=== PATIENT | female | born 1985 | race Caucasian/White ===

== ENCOUNTER 2020-06-08 21:12 | Inpatient (IN) | payer OTHER ==
[~2020-06-08] VITALS: Ht 167.6 cm; Wt 105.0 kg
--- NOTE | 2020-06-08 21:30 | NUR ---
PT PADDED SIDE RAILS, BED IN LOWEST LOCKED POSITION, FAMILY AT BEDSIDE, CALL LIGHT WITHIN REACH, PT PLACED CLOSE TO NURSES STATION FOR OBSERVATION.
--- NOTE | 2020-06-08 22:36 | NUR ---
PATIENT RESTING IN BED, EVEN-UNLABORED RESPIRATIONS NOTED. VSS. WILL CONTINUE TO MONITOR.
[2020-06-08 23:16] VITALS: BP 125/85
[2020-06-09 00:08] LABS: ALANINE AMINOTRANSFERASE 29 U/L (12-78); ALBUMIN 3.3 g/dL (3.4-5.0); ANION GAP 7 mmol/L (5-15); CALCIUM 8.7 mg/dL (8.5-10.1); CHLORIDE 108 mmol/L (98-107)
[2020-06-09 00:11] LABS: ALKALINE PHOSPHATASE 87 U/L (45-117); BILIRUBIN,TOTAL 0.2 mg/dL (0.2-1.0); TOTAL PROTEIN 7.3 g/dL (6.4-8.2)
[2020-06-09 00:12] LABS: BASOPHILS % (AUTO) 1 % (0-1); EOSINOPHILS % (AUTO) 0 % (1-7); LYMPHOCYTES % (AUTO) 15 % (22-44); MEAN CORPUSCULAR HGB CONC 34.1 g/dL (32.4-35.8); MEAN PLATELET VOLUME 7.3 fL (7.4-10.4); MONOCYTES % (AUTO) 4 % (2-9); NEUTROPHILS % (AUTO) 81 % (42-75); PLATELET COUNT 348 x10^3/uL (130-400); RED BLOOD COUNT 4.36 x10^6/uL (3.82-5.3); RED CELL DISTRIBUTION WIDTH 13.5 % (9.6-15.2)
[2020-06-09] MEDS ORDERED: hydrALAzine 20 MG/ML, 1ML IVPush PRN (00:30)
[2020-06-09] MEDS ORDERED: ONDANSETRON 2MG/ML, 2ML IVPush PRN (00:30)
[2020-06-09] MEDS ORDERED: LORazepam 2 MG/ML, 1ML IV PRN (00:30)
[2020-06-09 00:37] LABS: MD NO
[2020-06-09 01:33] VITALS: BP 122/77
[2020-06-09 05:32] LABS: BASOPHILS % (AUTO) 0 % (0-1); CHLORIDE 108 mmol/L (98-107); EOSINOPHILS % (AUTO) 0 % (1-7); LYMPHOCYTES % (AUTO) 25 % (22-44); MEAN CORPUSCULAR HGB CONC 34.2 g/dL (32.4-35.8); MEAN PLATELET VOLUME 7.5 fL (7.4-10.4); MONOCYTES % (AUTO) 5 % (2-9); NEUTROPHILS % (AUTO) 69 % (42-75); PLATELET COUNT 360 x10^3/uL (130-400); RED BLOOD COUNT 4.53 x10^6/uL (3.82-5.3); RED CELL DISTRIBUTION WIDTH 13.4 % (9.6-15.2)
[2020-06-09 05:37] LABS: MD NO
[2020-06-09 05:42] LABS: ALANINE AMINOTRANSFERASE 30 U/L (12-78); ALBUMIN 3.3 g/dL (3.4-5.0); ALKALINE PHOSPHATASE 89 U/L (45-117); ANION GAP 7 mmol/L (5-15); BILIRUBIN,TOTAL 0.4 mg/dL (0.2-1.0); CALCIUM 8.7 mg/dL (8.5-10.1); CREATININE 0.66 mg/dL (0.55-1.02); TOTAL PROTEIN 7.4 g/dL (6.4-8.2)
[2020-06-09 06:33] LABS: AMPHETAMINE SCREEN, URINE Negative (Negative); BARBITURATE SCREEN, URINE Negative (Negative); BENZODIAZEPINE SCREEN, URINE Negative (Negative); CANNABINOID SCREEN, URINE Negative (Negative); COCAINE SCREEN, URINE Negative (Negative); METHADONE SCREEN, URINE Negative (Negative); OPIATE SCREEN, URINE Negative (Negative)
[2020-06-09 08:48] VITALS: BP 124/83
[2020-06-09] MEDS: ACETAMINOPHEN 325 MG TABLET PO PRN (08:49)
[2020-06-09] MEDS ORDERED: GADOTERATE 10 MMOL/20ML SYR ONE (09:22)
[2020-06-09] MEDS ORDERED: NORE-205 PO (10:05)
[2020-06-09 12:53] LABS: T4 (THYROXINE) 14.1 mcg/dL (4.8-13.9)
[2020-06-09] MEDS: ZONISAMIDE 50 MG CAPSULE PO SCH (13:14)
[2020-06-09 13:46] VITALS: BP 131/84
[2020-06-09 19:29] VITALS: BP 108/70
[2020-06-09] MEDS ORDERED: NORETHINDRONE E ESTRADIOL IRON PO SCH (21:00)
[2020-06-10 01:09] VITALS: BP 125/73
[2020-06-10] MEDS: ZONISAMIDE 50 MG CAPSULE PO SCH (08:26)
[2020-06-10 08:40] VITALS: BP 123/83
[2020-06-10 15:40] VITALS: BP 114/77
[2020-06-10] MEDS: ASPIRIN 325 MG TABLET PO SCH (16:30)
[2020-06-10] MEDS: ACETAMINOPHEN 325 MG TABLET PO PRN (17:18)
[2020-06-10 19:55] VITALS: BP 113/64
[2020-06-11 01:41] VITALS: BP 110/72
[2020-06-11] MEDS: ASPIRIN 325 MG TABLET PO SCH (08:48)
[2020-06-11] MEDS: ACETAMINOPHEN 325 MG TABLET PO PRN (08:48)
[2020-06-11] MEDS: ZONISAMIDE 50 MG CAPSULE PO SCH (09:17)
[2020-06-11 09:50] VITALS: BP 113/72
[2020-06-11] MEDS ORDERED: CLOP75TA52 PO (14:20)
[2020-06-11] MEDS ORDERED: ASPI-963 PO (14:20)
[2020-06-11] MEDS ORDERED: ZONI50CA10 PO (14:20)
[2020-06-11 15:32] LABS: ANA SCREEN POSITIVE (Negative); ANTI-NUCLEAR ANTIBODY PATTERN HOMOGENOUS
== END 2020-06-11 16:32 | disposition home or self-care (01) | DRG 65 ==
LOC: ED 22:40 → EDIP 22:58 → UNDOADMIN 22:58 → 5SO 23:15 → EDIP 23:15 → 5SO 06-09 00:19 → DCLOUNGE 06-11 16:22
PROVIDERS: ADMIT Internal Medicine; ATTEND Internal Medicine
DX: I63.40 Cerebral infarction due to embolism of unspecified cerebral artery (principal); D68.59 Other primary thrombophilia; G40.409 Other generalized epilepsy and epileptic syndromes, not intractable, without status epilepticus; E66.9 Obesity, unspecified; G43.109 Migraine with aura, not intractable, without status migrainosus; Z79.82 Long term (current) use of aspirin; Z88.0 Allergy status to penicillin; I77.6 Arteritis, unspecified; R32 Unspecified urinary incontinence; G44.209 Tension-type headache, unspecified, not intractable; F41.0 Panic disorder [episodic paroxysmal anxiety]; H54.7 Unspecified visual loss; Z86.61 Personal history of infections of the central nervous system; Z87.74 Personal history of (corrected) congenital malformations of heart and circulatory system; Z68.37 Body mass index [BMI] 37.0-37.9, adult
CPT/HCPCS: 36415; 70553; 71045; 76536; 80053; 80307; 81240; 83036; 83520; 84436; 84443; 84481; 84703; 85025; 85300; 85301; 85302; 85303; 85305; 85306; 85379; 85598; 85610; 85613; 85651; 85670; 85730; 85732; 86038; 86039; 86140; 86146; 86147; 86148; 93306; 93356; 93880; 93970; 95819; G0378; A9575

== ENCOUNTER 2020-07-13 10:18 | Emergency (ER) | payer OTHER ==
[~2020-07-13] VITALS: Ht 162.6 cm; Wt 102.1 kg
[~2020-07-13 10:18] MED LIST: ASPI-963 PO; CLOP75TA52 PO; NORE-205 PO; ZONI50CA10 PO
--- NOTE | 2020-07-13 10:43 | NUR ---
PT CAME IN CO BILAT LEG SORENESS AND PAIN IN HER CALFS. RECENTLY WENT ON A CAR TRIP TO THE BAY. TAKES CLOPIDOGREL HAS HX OF RECENT CVA. PT ATTACHED TO MONITORS. POSITIONED TO COMFORT. VSS. NADN. CMS INTACT AND +2 PEDAL PULSES IN BLE. NO SWELLIG OR REDNESS OBSERVED IN BLE.
--- NOTE | 2020-07-13 11:08 | NUR ---
DR. DEMPSEY EVALUATED PT AT BEDSIDE. AWAITING US. YU.
--- NOTE | 2020-07-13 11:32 | NUR ---
us at bedside. vss. [place]itting[place].
[2020-07-13 11:48] LABS: ANION GAP 10 mmol/L (5-15); CALCIUM 9.2 mg/dL (8.5-10.1); CHLORIDE 107 mmol/L (98-107)
[2020-07-13 11:52] LABS: CREATINE KINASE, TOTAL 49 U/L (26-192); CREATININE 0.68 mg/dL (0.55-1.02)
[2020-07-13 13:10] VITALS: BP 134/77
== END 2020-07-13 13:11 | disposition home or self-care (01) ==
LOC: ED 12:18
DX: M79.661 Pain in right lower leg (principal); M79.662 Pain in left lower leg; Z86.718 Personal history of other venous thrombosis and embolism; Z87.891 Personal history of nicotine dependence
CPT/HCPCS: 36415; 80048; 82550; 93970; 99284

== ENCOUNTER 2020-09-01 06:52 | Day surgery (SDC) | payer OTHER ==
[~2020-09-01] VITALS: Ht 162.6 cm; Wt 105.0 kg
[2020-09-01 07:17] VITALS: BP 117/89
[2020-09-01] MEDS ORDERED: ESLI800T PO (07:28)
[2020-09-01] MEDS ORDERED: SODIUM CHLORIDE 0.9% 1,000 ML IV ONE (07:30)
[2020-09-01] MEDS ORDERED: PLEASE ENTER HEIGHT AND WEIGHT MC SCH (08:00)
[2020-09-01 08:09] LABS: BASOPHILS % (AUTO) 0 % (0-1); EOSINOPHILS % (AUTO) 3 % (1-7); LYMPHOCYTES % (AUTO) 30 % (22-44); MEAN CORPUSCULAR HEMOGLOBIN 29.3 pg (27.0-34.8); MEAN CORPUSCULAR HGB CONC 33.9 g/dL (32.4-35.8); MEAN PLATELET VOLUME 7.1 fL (7.4-10.4); MONOCYTES % (AUTO) 8 % (2-9); NEUTROPHILS % (AUTO) 60 % (42-75); PLATELET COUNT 370 x10^3/uL (130-400); RED BLOOD COUNT 4.84 x10^6/uL (3.82-5.3); RED CELL DISTRIBUTION WIDTH 13.7 % (9.6-15.2)
[2020-09-01 08:13] LABS: ANION GAP 9 mmol/L (5-15); CHLORIDE 109 mmol/L (98-107)
[2020-09-01 08:18] LABS: CREATININE 0.75 mg/dL (0.55-1.02)
[2020-09-01] MEDS ORDERED: LIDOCAINE 1%, 20ML ONE (10:17)
[2020-09-01] MEDS ORDERED: MIDAZOLAM 1 MG/ML, 2ML ONE (10:24)
[2020-09-01] MEDS ORDERED: FENTANYL PF 250 MCG/5ML ONE (10:24)
[2020-09-01] MEDS ORDERED: DEXAMETHASONE 4 MG/ML, 1ML ONE ×2 (10:25→10:26)
[2020-09-01] MEDS ORDERED: CEFAZOLIN 1,000 MG ONE ×2 (10:25)
[2020-09-01] MEDS ORDERED: HEPARIN 1,000 UNITS/ML, 10ML ONE ×2 (10:25→10:26)
[2020-09-01] MEDS ORDERED: PROPOFOL 10 MG/ML, 20ML ONE (10:32)
[2020-09-01] MEDS ORDERED: ROCURONIUM 10 MG/ML,10ML ONE (10:32)
[2020-09-01] MEDS ORDERED: GLYCOPYRROLATE 0.2MG/1ML, 5ML ONE (11:22)
[2020-09-01] MEDS ORDERED: NEOSTIGMINE 1 MG/ML, 10ML ONE (11:22)
[2020-09-01] MEDS ORDERED: MIDAZOLAM 1 MG/ML, 5ML ONE (11:39)
[2020-09-01] MEDS ORDERED: ACETAMINOPHEN 650 MG SUPP PR PRN (12:00)
[2020-09-01] MEDS ORDERED: HYDROcodone/APAP 5/325 TABLET PO PRN (12:00)
[2020-09-01] MEDS ORDERED: SODIUM CHLORIDE 0.9% 1,000 ML IV SCH (12:00)
[2020-09-01] MEDS ORDERED: hydrALAzine 20 MG/ML, 1ML IVPush PRN (12:00)
[2020-09-01] MEDS ORDERED: ONDANSETRON 2MG/ML, 2ML IVPush PRN (12:00)
[2020-09-01] MEDS ORDERED: LABETALOL 20 MG/4 ML IVPush PRN (12:00)
[2020-09-01] MEDS ORDERED: ACETAMINOPHEN 650 MG/20.3 ML UDC PO PRN (12:00)
[2020-09-01 13:24] VITALS: BP 98/65
== END 2020-09-01 18:18 | disposition home or self-care (01) ==
LOC: CACL 06:52 → 5SO 12:56 → CACL 18:18
PROVIDERS: ATTEND Internal Medicine Cardiovascular Disease
DX: Q21.1 Atrial septal defect (principal); I63.9 Cerebral infarction, unspecified; F41.9 Anxiety disorder, unspecified; G40.909 Epilepsy, unspecified, not intractable, without status epilepticus; Z20.822 Contact with and (suspected) exposure to COVID-19; Z79.02 Long term (current) use of antithrombotics/antiplatelets; Z79.82 Long term (current) use of aspirin; Z79.899 Other long term (current) drug therapy; Z87.891 Personal history of nicotine dependence; Z88.0 Allergy status to penicillin; Z88.1 Allergy status to other antibiotic agents
CPT/HCPCS: 36415; 80048; 84703; 85025; 85347; 87635; 93005; 93308; 93312; 93321; 93325; 93580; C1760; C1769; C1817; C1894; J0690; J1100; J1644; J2250; J2704; J2710; J3010; 93355; G0378; 93582

== ENCOUNTER → 2020-10-20 | Outpatient (CLI) | payer OTHER ==
[~2020-10-20] MED LIST changes: +ESLI800T PO
== END | disposition home or self-care (01) ==
LOC: CVU 13:03
PROVIDERS: ATTEND Internal Medicine Cardiovascular Disease
DX: Z01.810 Encounter for preprocedural cardiovascular examination (principal); Q21.1 Atrial septal defect; R06.02 Shortness of breath; I65.29 Occlusion and stenosis of unspecified carotid artery
CPT/HCPCS: 93306; 93356